=== PATIENT | female | born 1985 | race Caucasian/White ===

== ENCOUNTER 2018-06-05 11:59 | Emergency (ER) | payer OTHER ==
[2018-06-05] MEDS ORDERED: ONDANSETRON 4 MG/2 ML VIAL IVP ONE (15:07)
[2018-06-05] MEDS ORDERED: NS 1,000 ML IV ONE (15:07)
--- NOTE | 2018-06-05 15:11 | EDPHY ---
H & P Stated Complaint: RUQ abd pain x 5 days nausea, with episode bldy mucus diarrhea Time Seen by Provider: 06/05/18 14:54 HPI/ROS: CHIEF COMPLAINT: Abdominal pain HISTORY OF PRESENT ILLNESS: 32-year-old female with ulcerative colitis presents with abdominal pain. Onset of upper abdominal cramping 5 days ago, associated with bloody diarrhea. She stopped eating much 4 days ago and since then has had no further bloody diarrhea. However she has had persistent abdominal pain. The abdominal pain increases with any oral intake. Initially the pain was in the upper abdomen and now has migrated to the lower abdomen. The pain is currently moderate and associated with nausea. No fever or vomiting. Diagnosed with ulcerative colitis in 2016 by colonoscopy. Never has been on medications for ulcerative colitis. REVIEW OF SYSTEMS: complete 10 point ROS reviewed and is negative except for the noted elements in the HPI - Personal History LMP (Females 10-55): 22-28 Days Ago - Medical/Surgical History Hx Asthma: No Hx Chronic Respiratory Disease: No Hx Diabetes: No Hx Cardiac Disease: No Hx Renal Disease: No Hx Cirrhosis: No Hx Alcoholism: No Hx HIV/AIDS: No Hx Splenectomy or Spleen Trauma: No Other PMH: Ulcerative colitis - Social History Smoking Status: Never smoked Alcohol Use: Sober Drug Use: None - Physical Exam Exam: General Appearance: Alert, pleasant Eyes: Pupils equal and round, no conjunctival pallor ENT, Mouth: Mucous membranes moist Neck: Normal inspection Respiratory: Lungs are clear to auscultation Cardiovascular: Regular rate and rhythm Gastrointestinal: Abdomen is soft, diffuse tenderness especially in the right lower quadrant, no peritoneal signs Neurological: A&O, nonfocal, normal gait Skin: Warm and dry, no rash Extremities: Normal inspection Psychiatric: Mood and affect normal Constitutional: Initial Vital Signs Temperature (C) 37.3 C 06/05/18 12:28 Heart Rate 81 06/05/18 12:28 Respiratory Rate 16 06/05/18 12:28 Blood Pressure 139/90 H 06/05/18 12:28 O2 Sat (%) 97 06/05/18 12:28 O2 Delivery Mode Room Air Allergies/Adverse Reactions: No Known Allergies Allergy (Unverified 06/05/18 12:28) Home Medications: Medication Instructions Recorded Ondansetron Odt [Zofran Odt 4 mg 4 mg PO Q4 PRN #10 tab 06/05/18 (*)] predniSONE 40 mg PO DAILY #14 tab 06/05/18 Medical Decision Making - Diagnostics Imaging Results: Imaging Impressions Abdomen CT 06/05/18 15:47 Impression: 1. Circumferential wall thickening of the ascending colon through the hepatic flexure and proximal transverse colon, consistent with nonspecific colitis, possible ulcerative colitis, given the patient's history. 2. No evidence of appendicitis, bowel obstruction or pneumoperitoneum. 3. Right adnexal cystic lesion measuring 5.3 x 3.4 cm. Recommend follow-up ultrasound pelvis. Findings and recommendations discussed with Emergency Department physician, Dr. Carey Chen at 1658 hours on June 05, 2018. Final report concurs with initial preliminary interpretation. Imaging: Discussed imaging studies w/ fire prevention chief Radiologist ED Course/Re-evaluation: This patient presents with abdominal pain and bloody diarrhea (now resolved). He clinical presentation suggests a ulcerative colitis flare. CT scan of the abdomen and pelvis confirms this, with inflammation of the ascending and transverse colon. No evidence of abscess or other worrisome etiology for pain. She also has a right ovarian cyst which may be contributing to the right lower quadrant pain. CT results discussed with patient, including the ovarian cyst. I consulted Dr. Harrison, who will follow up with the patient in the office. Suggests prednisone 40 mg daily for 1 week. Patient is happy with this plan. Abdominal exam remains benign on discharge. Differential Diagnosis: Differential diagnosis includes though it is not limited to abscess, appendicitis, cholecystitis, diverticulitis, pyelonephritis, bowel perforation, small bowel obstruction. - Data Points Laboratory Results: Laboratory Results 06/05/18 15:18 06/05/18 15:18 06/05/18 06/05/18 06/05/18 15:25 15:18 15:18 WBC 9.07 10^3/uL 10^3/uL (3.80-9.50) RBC 5.20 10^6/uL 10^6/uL (4.18-5.33) Hgb 15.6 g/dL g/dL (12.6-16.3) POC Hgb 15.3 gm/dL gm/dL (12.6-16.3) Hct 45.3 % % (38.0-47.0) POC Hct 45 % % (38-47) MCV 87.1 fL fL (81.5-99.8) MCH 30.0 pg pg (27.9-34.1) MCHC 34.4 g/dL g/dL (32.4-36.7) RDW 11.9 % % (11.5-15.2) Plt Count 271 10^3/uL 10^3/uL (150-400) MPV 9.1 fL fL (8.7-11.7) Neut % (Auto) 64.7 % % (39.3-74.2) Lymph % (Auto) 22.7 % % (15.0-45.0) [place] % (Auto) 8.7 % % (4.5-13.0) Eos % (Auto) 3.1 % % (0.6-7.6) Baso % (Auto) 0.6 % % (0.3-1.7) Nucleat RBC Rel Count 0.0 % % (0.0-0.2) Absolute Neuts (auto) 5.87 10^3/uL 10^3/uL (1.70-6.50) Absolute Lymphs (auto) 2.06 10^3/uL 10^3/uL (1.00-3.00) Absolute Monos (auto) 0.79 10^3/uL 10^3/uL (0.30-0.80) Absolute Eos (auto) 0.28 10^3/uL 10^3/uL (0.03-0.40) Absolute Basos (auto) 0.05 10^3/uL 10^3/uL (0.02-0.10) Absolute Nucleated RBC 0.00 10^3/uL 10^3/uL (0-0.01) Immature Gran % 0.2 % % (0.0-1.1) Immature Gran # 0.02 10^3/uL 10^3/uL (0.00-0.10) POC Sodium 140 mEq/L mEq/L (135-145) Sodium POC Potassium 3.6 mEq/L mEq/L (3.3-5.0) Potassium POC Chloride 102 mEq/L mEq/L (97-110) Chloride Carbon Dioxide Anion Gap POC BUN 8 mg/dL mg/dL (7-23) BUN Creatinine POC Creatinine 0.8 mg/dL mg/dL (0.6-1.0) Estimated GFR Glucose POC Glucose 89 mg/dL mg/dL (70-100) Calcium Total Bilirubin Conjugated Bilirubin Unconjugated Bilirubin AST ALT Alkaline Phosphatase Total Protein Albumin Lipase Beta HCG, Qual NEGATIVE Urine Color Urine Appearance Urine pH Ur Specific [place] Urine Protein Urine Ketones Urine Blood Urine Nitrate Urine Bilirubin Urine Urobilinogen Ur Leukocyte Esterase Urine Glucose 06/05/18 06/05/18 15:18 12:40 WBC RBC Hgb POC Hgb Hct POC Hct MCV MCH MCHC RDW Plt Count MPV Neut % (Auto) Lymph % (Auto) [place] % (Auto) Eos % (Auto) Baso % (Auto) Nucleat RBC Rel Count Absolute Neuts (auto) Absolute Lymphs (auto) Absolute Monos (auto) Absolute Eos (auto) Absolute Basos (auto) Absolute Nucleated RBC Immature Gran % Immature Gran # POC Sodium Sodium 136 mEq/L mEq/L (135-145) POC Potassium Potassium 3.8 mEq/L mEq/L (3.5-5.2) POC Chloride Chloride 104 mEq/L mEq/L (97-110) Carbon Dioxide 24 mEq/l mEq/l (22-31) Anion Gap 8 mEq/L mEq/L (6-14) POC BUN BUN 11 mg/dL mg/dL (7-23) Creatinine 0.8 mg/dL mg/dL (0.6-1.0) POC Creatinine Estimated GFR > 60 Glucose 91 mg/dL mg/dL (70-100) POC Glucose Calcium 9.3 mg/dL mg/dL (8.5-10.4) Total Bilirubin 0.6 mg/dL mg/dL (0.1-1.4) Conjugated Bilirubin 0.3 mg/dL mg/dL (0.0-0.5) Unconjugated Bilirubin 0.3 mg/dL mg/dL (0.0-1.1) AST 21 IU/L IU/L (14-46) ALT 22 IU/L IU/L (9-52) Alkaline Phosphatase 65 IU/L IU/L (38-126) Total Protein 7.1 g/dL g/dL (6.3-8.2) Albumin 4.2 g/dL g/dL (3.5-5.0) Lipase 78 IU/L IU/L (23-300) Beta HCG, Qual Urine Color YELLOW Urine Appearance CLEAR Urine pH 5.0 (5.0-7.5) Ur Specific [place] 1.013 (1.002-1.030) Urine Protein NEGATIVE (NEGATIVE) Urine Ketones NEGATIVE (NEGATIVE) Urine Blood NEGATIVE (NEGATIVE) Urine Nitrate NEGATIVE (NEGATIVE) Urine Bilirubin NEGATIVE (NEGATIVE) Urine Urobilinogen NEGATIVE EU EU (0.2-1.0) Ur Leukocyte Esterase NEGATIVE (NEGATIVE) Urine Glucose NEGATIVE (NEGATIVE) Medications Given: Discontinued Medications Sodium Chloride (Ns) 1,000 mls @ 0 mls/hr IV EDNOW ONE; Wide Open PRN Reason: Protocol Stop: 06/05/18 15:08 Last Admin: 06/05/18 15:22 Dose: 1,000 mls Morphine Sulfate (Morphine) 4 mg IVP EDNOW ONE Stop: 06/05/18 15:08 Last Admin: 06/05/18 15:23 Dose: 4 mg Ondansetron HCl (Zofran) 4 mg IVP EDNOW ONE Stop: 06/05/18 15:08 Last Admin: 06/05/18 15:23 Dose: 4 mg Prednisone (Prednisone) 40 mg PO EDNOW ONE Stop: 06/05/18 17:33 Last Admin: 06/05/18 17:48 Dose: 40 mg Point of Care Test Results: Chemistry 06/05/18 15:25 POC Sodium 140 mEq/L mEq/L (135-145) POC Potassium 3.6 mEq/L mEq/L (3.3-5.0) POC Chloride 102 mEq/L mEq/L (97-110) POC BUN 8 mg/dL mg/dL (7-23) POC Creatinine 0.8 mg/dL mg/dL (0.6-1.0) POC Glucose 89 mg/dL mg/dL (70-100) ISTAT H&H 06/05/18 15:25 POC Hgb 15.3 gm/dL gm/dL (12.6-16.3) POC Hct 45 % % (38-47) Departure - Departure Disposition: Home, Routine, Self-Care Clinical Impression: Ulcerative colitis with rectal bleeding Qualifiers: Ulcerative colitis location: unspecified ulcerative colitis location Qualified Code(s): K51.911 - Ulcerative colitis, unspecified with rectal bleeding Condition: Good Instructions: Ulcerative Colitis (ED) Additional Instructions: Drink plenty of fluids. Return for worsening symptoms or any concerns. Referrals: Jose Angel Cerda MD [Medical Doctor] - As per Instructions (Call to make an appointment.) Prescriptions: Ondansetron Odt [Zofran Odt 4 mg (*)] 4 mg PO Q4 PRN #10 tab PRN Reason: Nausea predniSONE 40 mg PO DAILY #14 tab
[2018-06-05 15:31] LABS: PLATELET COUNT 271 10^3/uL (150-400)
[2018-06-05] MEDS ORDERED: IOPAMIDOL (ISOVUE 370) 100 ML BTL IV ONE (16:19)
[2018-06-05] MEDS ORDERED: predniSONE 20 MG TAB PO ONE (17:32)
[2018-06-05 17:57] VITALS: BP 121/74
== END 2018-06-05 17:56 | disposition home or self-care (01) ==
DX: K51.911 Ulcerative colitis, unspecified with rectal bleeding (principal); E86.9 Volume depletion, unspecified
CPT/HCPCS: 82435-PO; 82565-PO; 82947-PO; 84132-PO; 84295-PO; 84520-PO; 85014-ER; 96374; J2270; J2405; J7512; Q9967